=== PATIENT | male | born 1935 | race Caucasian/White ===

== ENCOUNTER → 2018-02-20 | Outpatient (CLI) | payer MEDICARE | END | disposition home or self-care (01) | LOC: US 07:44 → MERGE 08:00 | PROVIDERS: ATTEND Internal Medicine Nephrology | DX: K80.80 Other cholelithiasis without obstruction (principal) | CPT/HCPCS: 76700 ==

== ENCOUNTER → 2019-01-22 | Outpatient (CLI) | payer MEDICARE | END | disposition home or self-care (01) | LOC: RAD 13:15 | PROVIDERS: ATTEND Internal Medicine Nephrology | DX: R10.9 Unspecified abdominal pain (principal); Z90.49 Acquired absence of other specified parts of digestive tract | CPT/HCPCS: 74022 ==

== ENCOUNTER 2019-07-21 11:04 | Inpatient (IN) | payer MEDICARE ==
[~2019-07-21] VITALS: Ht 172.7 cm; Wt 62.6 kg
[2019-07-21 13:41] LABS: BASOPHILS % 0.5 % (0.0-2.0); EOSINOPHILS % 0.6 % (0.0-5.0); HEMATOCRIT. 40.1 % (42.0-52.0); HEMOGLOBIN. 13.3 g/dL (14.0-18.0); LYMPHOCYTES % 17.7 % (20.0-50.0); MEAN CORPUSCULAR HEMOGLOBIN 27.6 pg (28.0-32.0); MEAN CORPUSCULAR VOLUME 83.1 fL (80.0-94.0); MEAN PLATELET VOLUME 7.8 fl (7.4-10.4); NEUTROPHILS % 75.2 % (40.0-76.0); PLATELET 263 x1000/uL (130-400); RED BLOOD CELL COUNT 4.83 mill/uL (4.7-6.1)
[2019-07-21 13:44] LABS: CHLORIDE 106 mEq/L (98-107)
[2019-07-21 13:47] LABS: PARTIAL THROMBOPLASTIN TIME 28.1 sec (23.4-31.0); PROTHROMBIN TIME 10.1 sec (9.6-11.0)
[2019-07-21 13:48] LABS: ETHANOL BLOOD < 10 mg/dL
[2019-07-21 14:24] LABS: CLARITY URINE CLOUDY (CLEAR); COLOR URINE DARK YELLOW (YELLOW); KETONES URINE NEGATIVE (NEGATIVE); LEUKOCYTE ESTERASE URINE TRACE (NEGATIVE); NITRITE URINE POSITIVE (NEGATIVE); OCCULT BLOOD URINE NEGATIVE (NEGATIVE); PH URINE 5.5 (4.5-8.0); PROTEIN URINE NEGATIVE (NEGATIVE); SPECIFIC GRAVITY URINE 1.023 (1.005-1.030)
[2019-07-21] MEDS ORDERED: CEFTRIAXONE 1 G PREMIX 50 ML IV ONE (14:45)
[2019-07-21 14:48] LABS: *AMPHETAMINES SCREEN URINE NEGATIVE (NEGATIVE); *BARBITURATES SCREEN URINE NEGATIVE (NEGATIVE); *BENZODIAZEPINES SCREEN URINE NEGATIVE (NEGATIVE); *COCAINE SCREEN URINE NEGATIVE (NEGATIVE)
[2019-07-21 14:49] LABS: CANNABINOID URINE SCREEN NEGATIVE (NEGATIVE); METHADONE URINE SCREEN NEGATIVE (NEGATIVE); OPIATES URINE SCREEN NEGATIVE (NEGATIVE); PHENCYCLIDINE URINE SCREEN NEGATIVE (NEGATIVE)
[2019-07-21] MEDS ORDERED: ONDANSETRON HCL 4MG/2ML INJ IV PRN (16:15)
[2019-07-21] MEDS ORDERED: CLONIDINE 0.1MG TABLET PO PRN (16:15)
[2019-07-21] MEDS ORDERED: ACETAMINOPHEN 325MG TABLET PO PRN (16:15)
[2019-07-21] MEDS ORDERED: MAGNESIUM/ALUMINUM HYDROXIDE/SIMETHICONE 30ML UDC PO PRN (16:15)
[2019-07-22] VITALS (7 sets, daily range): BP systolic 104–126; BP diastolic 49–71
[2019-07-22] MEDS ORDERED: INFLUENZA VIRUS VACCINE(AFLURIA) 0.5ML SYR IM ONE (06:00)
[2019-07-22] MEDS ORDERED: PNEUMOCOCCAL 23-VAL P-SAC VAC 0.5 ML IM ONE (06:00)
[2019-07-22 06:35] LABS: BASOPHILS % 0.5 % (0.0-2.0); EOSINOPHILS % 1.5 % (0.0-5.0); HEMATOCRIT. 35.1 % (42.0-52.0); HEMOGLOBIN. 11.7 g/dL (14.0-18.0); LYMPHOCYTES % 27.9 % (20.0-50.0); MEAN CORPUSCULAR HEMOGLOBIN 27.7 pg (28.0-32.0); MEAN CORPUSCULAR VOLUME 83.4 fL (80.0-94.0); MEAN PLATELET VOLUME 8.1 fl (7.4-10.4); MONOCYTES % 7.6 % (2.0-8.0); NEUTROPHILS % 62.5 % (40.0-76.0); PLATELET 227 x1000/uL (130-400); RED BLOOD CELL COUNT 4.21 mill/uL (4.7-6.1); RED CELL DISTRIBUTION WIDTH 17.2 % (11.6-14.6)
[2019-07-22 06:53] LABS: CHLORIDE 106 mEq/L (98-107)
[2019-07-22] MEDS: ENOXAPARIN 40MG/0.4ML SYR SUBCUT SCH (09:41)
[2019-07-22] MEDS: AMLODIPINE 5MG TABLET PO SCH ×2 (11:30→12:31)
[2019-07-22] MEDS: DIPHENHYDRAMINE 50MG CAPSULE PO PRN (12:31)
[2019-07-22] MEDS: TAMSULOSIN HCL 0.4MG SR CAPSULE PO SCH (12:33)
[2019-07-22] MEDS ORDERED: ATORVASTATIN CALCIUM 20MG TABLET PO SCH (21:00)
[2019-07-22] MEDS ORDERED: TAMS-11 PO (23:29)
[2019-07-22] MEDS ORDERED: ENAL5TAB MT (23:29)
[2019-07-22] MEDS ORDERED: ATOR40TA70 MT (23:29)
[2019-07-23] VITALS: BP 138/62
[2019-07-23 04:00] VITALS: BP 110/52
[2019-07-23 07:31] LABS: CHLORIDE 105 mEq/L (98-107)
[2019-07-23] MEDS ORDERED: POTASSIUM CHLORIDE 20MEQ TABLET SR PO NR (07:45)
[2019-07-23 08:06] LABS: BASOPHILS % 0.5 % (0.0-2.0); EOSINOPHILS % 2.4 % (0.0-5.0); HEMATOCRIT. 34.3 % (42.0-52.0); HEMOGLOBIN. 11.4 g/dL (14.0-18.0); LYMPHOCYTES % 19.4 % (20.0-50.0); MEAN CORPUSCULAR HEMOGLOBIN 27.7 pg (28.0-32.0); MEAN CORPUSCULAR VOLUME 83.1 fL (80.0-94.0); MONOCYTES % 6.8 % (2.0-8.0); NEUTROPHILS % 70.9 % (40.0-76.0); PLATELET 211 x1000/uL (130-400); RED BLOOD CELL COUNT 4.13 mill/uL (4.7-6.1); RED CELL DISTRIBUTION WIDTH 17.3 % (11.6-14.6)
[2019-07-23 08:10] VITALS: BP 117/50
[2019-07-23] MEDS: AMLODIPINE 5MG TABLET PO SCH (09:00)
[2019-07-23] MEDS: TAMSULOSIN HCL 0.4MG SR CAPSULE PO SCH (09:54)
[2019-07-23] MEDS: DIPHENHYDRAMINE 50MG CAPSULE PO PRN ×2 (09:54→17:19)
[2019-07-23] MEDS: ENOXAPARIN 40MG/0.4ML SYR SUBCUT SCH (09:57)
[2019-07-23] MEDS: SODIUM CHLORIDE 0.45% 1,000 ML IV SCH ×2 (11:02→22:41)
[2019-07-23 12:45] VITALS: BP 124/54
[2019-07-23 16:21] VITALS: BP 122/56
[2019-07-23 20:00] VITALS: BP 97/55
[2019-07-23] MEDS: CEFTRIAXONE 1 G PREMIX 50 ML IV SCH (22:36)
[2019-07-24] VITALS: BP 108/57
[2019-07-24 04:00] VITALS: BP 129/58
[2019-07-24 06:22] LABS: CHLORIDE 106 mEq/L (98-107); PARTIAL THROMBOPLASTIN TIME 28.9 sec (23.4-31.0); PROTHROMBIN TIME 10.4 sec (9.6-11.0)
[2019-07-24 06:24] LABS: BASOPHILS % 0.4 % (0.0-2.0); HEMATOCRIT. 35.2 % (42.0-52.0); HEMOGLOBIN. 11.7 g/dL (14.0-18.0); LYMPHOCYTES % 17.7 % (20.0-50.0); MEAN CORPUSCULAR HEMOGLOBIN 27.6 pg (28.0-32.0); MEAN PLATELET VOLUME 7.9 fl (7.4-10.4); MONOCYTES % 6.2 % (2.0-8.0); NEUTROPHILS % 73.7 % (40.0-76.0); PLATELET 212 x1000/uL (130-400); RED BLOOD CELL COUNT 4.25 mill/uL (4.7-6.1); RED CELL DISTRIBUTION WIDTH 17.1 % (11.6-14.6)
[2019-07-24] MEDS: DIPHENHYDRAMINE 50MG CAPSULE PO PRN (06:54)
[2019-07-24 08:00] VITALS: BP 124/54
[2019-07-24] MEDS: TAMSULOSIN HCL 0.4MG SR CAPSULE PO SCH (09:00)
[2019-07-24] MEDS: AMLODIPINE 5MG TABLET PO SCH (09:00)
[2019-07-24] MEDS ORDERED: CEFAZOLIN 1000MG PREMIX 50 ML IV NR (11:00)
[2019-07-24 12:00] VITALS: BP 130/49
[2019-07-24 13:25] VITALS: BP_SYST 125; BP_SYST 126; BP_SYST 130; BP_DIAS 53; BP_DIAS 58
[2019-07-24] MEDS ORDERED: SIMETHICONE 40 MG/0.6 ML 30ML ONE (13:49)
[2019-07-24] MEDS ORDERED: IOHEXOL-300 100 ML BOTTLE ONE ×2 (13:49→16:32)
[2019-07-24] MEDS ORDERED: FENTANYL CITRATE/PF 50MCG/ML 2ML VIAL ONE (15:30)
[2019-07-24] MEDS ORDERED: MIDAZOLAM HCL 2 MG/2 ML VIAL ONE (15:31)
[2019-07-24] MEDS ORDERED: PROPOFOL 200MG/20ML VIAL IV ONE (15:31)
[2019-07-24] MEDS ORDERED: LIDOCAINE HCL 1% 20ML VIAL (Pyxis) INJ ONE (15:32)
[2019-07-24] MEDS ORDERED: ROCURONIUM BROMIDE 10MG/ML VIAL 5ML IV ONE (15:32)
[2019-07-24] MEDS ORDERED: SUCCINYLCHOLINE CHLORIDE 200MG/10ML IV ONE (15:32)
[2019-07-24] MEDS ORDERED: PHENYLEPHRINE HCL 10 MG/ML 1ML (IV VIAL) IV ONE (15:32)
[2019-07-24] MEDS ORDERED: EPHEDRINE SULFATE 50MG/ML VIAL ONE (15:32)
[2019-07-24] MEDS ORDERED: ONDANSETRON HCL 4MG/2ML INJ ONE (15:33)
[2019-07-24] MEDS ORDERED: ESMOLOL HCL 10MG/ML 10ML VIAL IV ONE (15:55)
[2019-07-24] MEDS ORDERED: DEXAMETHASONE 4MG/ML 1ML VIAL ONE (16:18)
[2019-07-24] MEDS ORDERED: GLYCOPYRROLATE 0.2 MG/ML 2ML VIAL ONE (16:52)
[2019-07-24] MEDS ORDERED: NEOSTIGMINE METHYLSULFATE 1MG/ML 10 ML VIAL ONE (16:52)
[2019-07-24] MEDS ORDERED: HYDRALAZINE 20MG/ML VIAL ONE (16:57)
[2019-07-24 20:00] VITALS: BP 114/57
[2019-07-25] VITALS (7 sets, daily range): BP systolic 106–154; BP diastolic 51–89
[2019-07-25] MEDS: CEFTRIAXONE 1 G PREMIX 50 ML IV SCH (03:39)
[2019-07-25] MEDS: SODIUM CHLORIDE 0.45% 1,000 ML IV SCH ×3 (05:01→12:15)
[2019-07-25] MEDS: TAMSULOSIN HCL 0.4MG SR CAPSULE PO SCH (09:00)
[2019-07-25] MEDS: AMLODIPINE 5MG TABLET PO SCH (09:00)
[2019-07-25] MEDS ORDERED: DIPH25CA83 MT (16:09)
== END 2019-07-25 16:20 | disposition home or self-care (01) | DRG 444 ==
LOC: ER 11:04 → ENRESERV 22:54 → 6WST 23:57
PROVIDERS: ADMIT Internal Medicine Nephrology; ATTEND Internal Medicine Nephrology
PROC: 0FC98ZZ Extirpation of Matter from Common Bile Duct, Via Natural or Artificial Opening Endoscopic (ICD-10-PCS; principal; 2019-07-24)
PROC: BF111ZZ Fluoroscopy of Biliary and Pancreatic Ducts using Low Osmolar Contrast (ICD-10-PCS; 2019-07-24)
DX: K80.51 Calculus of bile duct without cholangitis or cholecystitis with obstruction (principal); E43 Unspecified severe protein-calorie malnutrition; N39.0 Urinary tract infection, site not specified; I31.3 Pericardial effusion (noninflammatory); G90.8 Other disorders of autonomic nervous system; K86.9 Disease of pancreas, unspecified; E78.00 Pure hypercholesterolemia, unspecified; N28.1 Cyst of kidney, acquired; M85.80 Other specified disorders of bone density and structure, unspecified site; M47.816 Spondylosis without myelopathy or radiculopathy, lumbar region; N40.0 Benign prostatic hyperplasia without lower urinary tract symptoms; L29.9 Pruritus, unspecified; E78.5 Hyperlipidemia, unspecified; K83.8 Other specified diseases of biliary tract; E86.9 Volume depletion, unspecified; Z90.49 Acquired absence of other specified parts of digestive tract; Z79.899 Other long term (current) drug therapy; I11.9 Hypertensive heart disease without heart failure; R16.0 Hepatomegaly, not elsewhere classified; Z68.21 Body mass index [BMI] 21.0-21.9, adult
CPT/HCPCS: 36415; 71045; 74177; 74181; 74328; 80048; 80305; 80320; 81003; 83605; 83880; 84484; 86301; 86304; 90686; 90732; 93005; 93306; 93880; 96374; 99285; C1726; C1769; J0330; J0360; J0690; J0696; J1100; J1650; J2250; J2370; J2405; J2704; J2710; J3010; J3490; Q0163; Q9967; G0480